=== PATIENT | female | born 1945 | race Caucasian/White ===

== ENCOUNTER 2017-07-21 12:28 | Inpatient (IN) | payer OTHER, MEDICAID ==
[~2017-07-21] VITALS: Ht 157.5 cm; Wt 57.5 kg
[~2017-07-21 12:28] MED LIST: ACET500T71 PO; ACET650S12 PR; ALEN70TA5 PO; ALPR-475 PO; AMIO200T42 PO; AMLO10TA2 PO; ASPI-496 PO; ASPI-515 PO; ATOR40TA78 PO; BISA10SU54 PR; BUDE10.2 INH; CALC-141 PO; CHOL100012 PO; CHOL10003 PO; CHOL20002 PO; CLOP75TA PO; DABI150C PO; DENO60DI SQ; DOXY100C2 PO; DOXY100T PO; EZET10TA18 PO; FLUT1AER INH; FLUT1BLS INH; FLUT1DIS3 INH; HYDR-3237 PO; LEVO500T8 PO; LEVO50TA5 PO; LISI-167 PO; LISI40TA PO; LISI5TAB7 PO; LUBI24CA7 PO; METO-264 PO; METO-93 PO; METO25TA35 PO; METO25TA91 PO; METO50TA82 PO; METR500T8 PO; MIRT45TA4 PO; MUPI15CR9 TP; OMEP-110 PO; ROSU20TA PO; ROSU40TA PO; SPIR25TA3 PO; TIOT18CA INH; ZOLP5TAB6 PO
[2017-07-21] MEDS ORDERED: SODIUM CHLORIDE 0.9% 1,000 ML IV ONE (12:45)
[2017-07-21] MEDS ORDERED: ONDANSETRON 2MG/ML, 2ML ONE (12:56)
[2017-07-21] MEDS ORDERED: morphine SULFATE 10 MG/ML, 1ML ONE (12:56)
[2017-07-21] MEDS ORDERED: PLEASE ENTER HEIGHT AND WEIGHT MC SCH (13:00)
[2017-07-21] MEDS ORDERED: ONDANSETRON 2MG/ML, 2ML IVPush ONE (13:00)
[2017-07-21] MEDS ORDERED: SODIUM CHLORIDE 0.9% 1,000ML IVBOLUS ONE ×2 (13:00→23:00)
[2017-07-21] MEDS ORDERED: MORPHINE SULFATE 4 MG/ML, 1ML IVPush PRN (13:00)
[2017-07-21 13:01] LABS: HEMATOCRIT 37.3 % (34.6-47.8); HEMOGLOBIN 12.2 g/dL (11.7-16.4); WHITE BLOOD COUNT 19.6 x10^3/uL (3.4-10)
[2017-07-21 13:13] LABS: ASPARTATE AMINO TRANSFERASE 17 U/L (15-37); BLOOD UREA NITROGEN 34 mg/dL (7-18)
[2017-07-21] MEDS ORDERED: OMNIPAQUE 350 MG/ML, 100ML BOTTLE ONE (13:59)
[2017-07-21] MEDS ORDERED: CIPROFLOXACIN/PMX 400MG/200ML 200 ML ONE (14:58)
[2017-07-21] MEDS ORDERED: METRONIDAZOLE PMX 500MG/100ML 100 ML IVPB ONE (15:00)
[2017-07-21] MEDS ORDERED: CIPROFLOXACIN/PMX 400MG/200ML 100 ML IVPB ONE (15:00)
[2017-07-21 15:50] VITALS: BP 146/74
[2017-07-21] MEDS ORDERED: morphine SULFATE 10 MG/ML, 1ML IVPush PRN (17:00)
[2017-07-21] MEDS: METRONIDAZOLE PMX 500MG/100ML 100 ML IV SCH (19:35)
[2017-07-21] MEDS: SODIUM CHLORIDE 0.9% 1,000 ML IV SCH (19:35)
[2017-07-21] MEDS: IPRATROPIUM 0.5 MG/2.5 ML INHA NPPB SCH (20:14)
[2017-07-21] MEDS: DABIGATRAN 150 MG CAPSULE PO SCH (21:40)
[2017-07-21] MEDS: MIRTAZAPINE 15 MG TABLET PO SCH (21:40)
[2017-07-21] MEDS: LUBIPROSTONE 24 MCG CAPSULE PO SCH (21:40)
[2017-07-21] MEDS: ATORVASTATIN 40 MG TABLET PO SCH (21:40)
[2017-07-21] MEDS: CHOLECALCIFEROL 1,000 UNIT TABLET PO SCH (21:40)
[2017-07-21] MEDS: OMEPRAZOLE 20 MG CAPSULE.DR PO SCH (21:40)
[2017-07-21] MEDS: EZETIMIBE 10 MG TABLET PO SCH (21:40)
[2017-07-21 22:35] VITALS: BP_SYST 83; BP_SYST 86; BP_DIAS 54; BP_DIAS 57
[2017-07-22 00:29] VITALS: BP 118/65
[2017-07-22 01:31] VITALS: BP 116/72
[2017-07-22] MEDS: CIPROFLOXACIN/PMX 400MG/200ML 200 ML IV SCH ×2 (02:48→15:22)
[2017-07-22] MEDS: SODIUM CHLORIDE 0.9% 1,000 ML IV SCH ×2 (05:05→15:21)
[2017-07-22] MEDS: METRONIDAZOLE PMX 500MG/100ML 100 ML IV SCH ×3 (05:05→19:40)
[2017-07-22 05:09] VITALS: BP 105/92
[2017-07-22] MEDS: METOPROLOL SUCCINATE 100 MG TAB.ER.24H PO SCH (05:09)
[2017-07-22 05:28] LABS: WHITE BLOOD COUNT 10.3 x10^3/uL (3.4-10)
[2017-07-22 05:37] LABS: BLOOD UREA NITROGEN 15 mg/dL (7-18)
[2017-07-22 05:41] LABS: ASPARTATE AMINO TRANSFERASE 10 U/L (15-37)
[2017-07-22 07:45] VITALS: BP 129/78
[2017-07-22] MEDS: AMLODIPINE 5 MG TABLET PO SCH (07:54)
[2017-07-22] MEDS: DABIGATRAN 150 MG CAPSULE PO SCH ×2 (07:54→21:15)
[2017-07-22] MEDS: LUBIPROSTONE 24 MCG CAPSULE PO SCH ×2 (07:54→21:00)
[2017-07-22] MEDS: CHOLECALCIFEROL 1,000 UNIT TABLET PO SCH ×2 (07:54→21:15)
[2017-07-22] MEDS: AMIODARONE 200 MG TABLET PO SCH (07:54)
[2017-07-22] MEDS: LISINOPRIL 10 MG TABLET PO SCH (07:55)
[2017-07-22] MEDS: ASPIRIN 81 MG TABLET EC PO SCH (07:55)
[2017-07-22] MEDS ORDERED: POTASSIUM CHLORIDE 20 MEQ TAB.ER.PRT PO ONE (08:00)
[2017-07-22] MEDS: IPRATROPIUM 0.5 MG/2.5 ML INHA NPPB SCH ×2 (08:32→20:32)
[2017-07-22 13:54] VITALS: BP 117/72
[2017-07-22] MEDS: POTASSIUM CHLORIDE 20 MEQ TAB.ER.PRT PO SCH (17:36)
[2017-07-22 19:58] VITALS: BP 145/77
[2017-07-22] MEDS: OMEPRAZOLE 20 MG CAPSULE.DR PO SCH (21:15)
[2017-07-22] MEDS: MIRTAZAPINE 15 MG TABLET PO SCH (21:15)
[2017-07-22] MEDS: ATORVASTATIN 40 MG TABLET PO SCH (21:15)
[2017-07-22] MEDS: EZETIMIBE 10 MG TABLET PO SCH (21:16)
[2017-07-23] MEDS: SODIUM CHLORIDE 0.9% 1,000 ML IV SCH ×3 (01:00→17:43)
[2017-07-23 01:06] VITALS: BP 144/80
[2017-07-23] MEDS: CIPROFLOXACIN/PMX 400MG/200ML 200 ML IV SCH ×2 (02:51→14:28)
[2017-07-23] MEDS: METRONIDAZOLE PMX 500MG/100ML 100 ML IV SCH ×3 (04:06→20:32)
[2017-07-23 05:07] LABS: BLOOD UREA NITROGEN 4 mg/dL (7-18)
[2017-07-23 05:08] LABS: HEMATOCRIT 28.7 % (34.6-47.8); HEMOGLOBIN 9.6 g/dL (11.7-16.4); WHITE BLOOD COUNT 7.2 x10^3/uL (3.4-10)
[2017-07-23] MEDS: METOPROLOL SUCCINATE 100 MG TAB.ER.24H PO SCH (05:25)
[2017-07-23] MEDS: LEVOTHYROXINE 50 MCG TABLET PO SCH ×2 (05:25→07:05)
[2017-07-23 07:03] VITALS: BP 136/82
[2017-07-23] MEDS: LUBIPROSTONE 24 MCG CAPSULE PO SCH ×2 (08:58→20:33)
[2017-07-23] MEDS: POTASSIUM CHLORIDE 20 MEQ TAB.ER.PRT PO SCH ×3 (08:58→17:43)
[2017-07-23] MEDS: AMIODARONE 200 MG TABLET PO SCH (08:58)
[2017-07-23] MEDS: AMLODIPINE 5 MG TABLET PO SCH (08:58)
[2017-07-23] MEDS: ASPIRIN 81 MG TABLET EC PO SCH (08:58)
[2017-07-23] MEDS: LISINOPRIL 10 MG TABLET PO SCH (08:58)
[2017-07-23] MEDS: CHOLECALCIFEROL 1,000 UNIT TABLET PO SCH ×2 (08:58→20:33)
[2017-07-23] MEDS ORDERED: POTASSIUM CHLORIDE 40 MEQ in SODIUM CHLORIDE 0.9% 500 ML IV ONE (09:00)
[2017-07-23] MEDS: HYDROcodone/APAP 5/325 TABLET PO PRN ×2 (09:11→17:43)
[2017-07-23] MEDS: DABIGATRAN 150 MG CAPSULE PO SCH ×2 (09:40→20:32)
[2017-07-23] MEDS: IPRATROPIUM 0.5 MG/2.5 ML INHA NPPB SCH ×2 (10:10→18:52)
[2017-07-23 13:09] VITALS: BP 122/76
[2017-07-23] MEDS ORDERED: BISACODYL 10 MG SUPP PR PRN (19:30)
[2017-07-23] MEDS ORDERED: LACTULOSE 20 GM/30 ML UDC PO PRN (19:30)
[2017-07-23 19:38] VITALS: BP 150/88
[2017-07-23] MEDS: OMEPRAZOLE 20 MG CAPSULE.DR PO SCH (20:33)
[2017-07-23] MEDS: ATORVASTATIN 40 MG TABLET PO SCH (20:33)
[2017-07-23] MEDS: EZETIMIBE 10 MG TABLET PO SCH (20:34)
[2017-07-23] MEDS: MIRTAZAPINE 15 MG TABLET PO SCH (20:34)
[2017-07-24] MEDS: HYDROcodone/APAP 5/325 TABLET PO PRN ×4 (01:57→21:08)
[2017-07-24] MEDS: SODIUM CHLORIDE 0.9% 1,000 ML IV SCH ×4 (01:59→21:02)
[2017-07-24] MEDS: CIPROFLOXACIN/PMX 400MG/200ML 200 ML IV SCH ×2 (01:59→15:46)
[2017-07-24 02:18] VITALS: BP 128/70
[2017-07-24] MEDS: METRONIDAZOLE PMX 500MG/100ML 100 ML IV SCH ×3 (04:00→20:57)
[2017-07-24 04:58] LABS: HEMATOCRIT 30.9 % (34.6-47.8); HEMOGLOBIN 10.3 g/dL (11.7-16.4); WHITE BLOOD COUNT 7.2 x10^3/uL (3.4-10)
[2017-07-24 05:10] LABS: BLOOD UREA NITROGEN 4 mg/dL (7-18)
[2017-07-24] MEDS: LEVOTHYROXINE 50 MCG TABLET PO SCH (06:05)
[2017-07-24] MEDS: METOPROLOL SUCCINATE 100 MG TAB.ER.24H PO SCH ×2 (06:05→06:31)
[2017-07-24 08:07] VITALS: BP 145/81
[2017-07-24] MEDS: DABIGATRAN 150 MG CAPSULE PO SCH ×2 (08:19→21:00)
[2017-07-24] MEDS: LUBIPROSTONE 24 MCG CAPSULE PO SCH ×2 (08:19→21:00)
[2017-07-24] MEDS: AMLODIPINE 5 MG TABLET PO SCH (08:20)
[2017-07-24] MEDS: AMIODARONE 200 MG TABLET PO SCH (08:20)
[2017-07-24] MEDS: POTASSIUM CHLORIDE 20 MEQ TAB.ER.PRT PO SCH ×2 (08:20→13:07)
[2017-07-24] MEDS: CHOLECALCIFEROL 1,000 UNIT TABLET PO SCH ×2 (08:20→21:01)
[2017-07-24] MEDS: ASPIRIN 81 MG TABLET EC PO SCH (08:20)
[2017-07-24] MEDS: LISINOPRIL 10 MG TABLET PO SCH (08:20)
[2017-07-24] MEDS ORDERED: DOCUSATE 100 MG CAPSULE PO SCH (09:00)
[2017-07-24] MEDS ORDERED: MAGNESIUM SULFATE PMX 2GM/50ML 50 ML IV ONE (09:30)
[2017-07-24] MEDS: IPRATROPIUM 0.5 MG/2.5 ML INHA NPPB SCH ×2 (09:45→19:39)
[2017-07-24] MEDS: ONDANSETRON 2MG/ML, 2ML IVPush PRN ×2 (11:13→21:07)
[2017-07-24] MEDS ORDERED: OMNIPAQUE 350 MG/ML, 75ML BOTTLE ONE (11:19)
[2017-07-24] MEDS: MAGNESIUM CHLORIDE 64 MG TABLET.DR PO SCH (13:07)
[2017-07-24 13:18] VITALS: BP 90/61
[2017-07-24] MEDS: FLUTICASONE/VILANTEROL 200-25MCG/INH INH SCH (17:00)
[2017-07-24] MEDS ORDERED: POLYETHYLENE GLYCOL 17 GM PACKET PO PRN (17:00)
[2017-07-24] MEDS ORDERED: MAGNESIUM CITRATE 300ML ORAL SOL PO ONE (17:00)
[2017-07-24] MEDS: SENNA/DOCUSATE TABLET PO SCH (17:38)
[2017-07-24 20:15] VITALS: BP 123/69
[2017-07-24] MEDS: OMEPRAZOLE 20 MG CAPSULE.DR PO SCH (21:00)
[2017-07-24] MEDS: ATORVASTATIN 40 MG TABLET PO SCH (21:00)
[2017-07-24] MEDS: EZETIMIBE 10 MG TABLET PO SCH (21:00)
[2017-07-24] MEDS: MIRTAZAPINE 15 MG TABLET PO SCH (21:01)
[2017-07-25] MEDS: HYDROcodone/APAP 5/325 TABLET PO PRN ×4 (03:22→17:14)
[2017-07-25] MEDS: CIPROFLOXACIN/PMX 400MG/200ML 200 ML IV SCH ×2 (03:22→15:52)
[2017-07-25 04:30] VITALS: BP 115/60
[2017-07-25] MEDS: METRONIDAZOLE PMX 500MG/100ML 100 ML IV SCH ×2 (05:00→12:55)
[2017-07-25] MEDS: LEVOTHYROXINE 50 MCG TABLET PO SCH (05:00)
[2017-07-25] MEDS: METOPROLOL SUCCINATE 100 MG TAB.ER.24H PO SCH (05:01)
[2017-07-25 06:56] VITALS: BP 104/66
[2017-07-25] MEDS: LISINOPRIL 10 MG TABLET PO SCH (08:01)
[2017-07-25] MEDS: FLUTICASONE/VILANTEROL 200-25MCG/INH INH SCH (08:01)
[2017-07-25] MEDS: LUBIPROSTONE 24 MCG CAPSULE PO SCH ×2 (08:01→20:30)
[2017-07-25] MEDS: DABIGATRAN 150 MG CAPSULE PO SCH ×2 (08:01→20:30)
[2017-07-25] MEDS: AMIODARONE 200 MG TABLET PO SCH (08:01)
[2017-07-25] MEDS: CHOLECALCIFEROL 1,000 UNIT TABLET PO SCH ×2 (08:01→20:30)
[2017-07-25] MEDS: AMLODIPINE 5 MG TABLET PO SCH (08:02)
[2017-07-25] MEDS: ASPIRIN 81 MG TABLET EC PO SCH (08:02)
[2017-07-25] MEDS: SENNA/DOCUSATE TABLET PO SCH (08:02)
[2017-07-25] MEDS: SODIUM CHLORIDE 0.9% 1,000 ML IV SCH ×2 (08:02→15:53)
[2017-07-25] MEDS: MAGNESIUM CHLORIDE 64 MG TABLET.DR PO SCH (08:02)
[2017-07-25] MEDS: IPRATROPIUM 0.5 MG/2.5 ML INHA NPPB SCH ×2 (10:00→21:00)
[2017-07-25 13:04] VITALS: BP 150/83
[2017-07-25 14:09] VITALS: BP 109/60
[2017-07-25] MEDS ORDERED: MAGNESIUM CITRATE 300ML ORAL SOL PO ONE (17:00)
[2017-07-25] MEDS: ONDANSETRON 2MG/ML, 2ML IVPush PRN (17:14)
[2017-07-25] MEDS ORDERED: ONDANSETRON ODT 4 MG PO PRN (18:30)
[2017-07-25 19:05] VITALS: BP 149/81
[2017-07-25] MEDS: metroNIDAZOLE 500 MG TABLET PO SCH (20:29)
[2017-07-25] MEDS: ATORVASTATIN 40 MG TABLET PO SCH (20:30)
[2017-07-25] MEDS: MIRTAZAPINE 15 MG TABLET PO SCH (20:30)
[2017-07-25] MEDS: EZETIMIBE 10 MG TABLET PO SCH (20:30)
[2017-07-25] MEDS: OMEPRAZOLE 20 MG CAPSULE.DR PO SCH (20:30)
[2017-07-26 03:28] VITALS: BP 147/79
[2017-07-26] MEDS: HYDROcodone/APAP 5/325 TABLET PO PRN ×3 (03:40→12:36)
[2017-07-26] MEDS: CIPROFLOXACIN 500 MG TABLET PO SCH ×2 (03:40→09:19)
[2017-07-26] MEDS: metroNIDAZOLE 500 MG TABLET PO SCH ×2 (05:24→12:36)
[2017-07-26] MEDS: METOPROLOL SUCCINATE 100 MG TAB.ER.24H PO SCH ×2 (05:24→06:23)
[2017-07-26] MEDS: LEVOTHYROXINE 50 MCG TABLET PO SCH (06:23)
[2017-07-26 08:13] VITALS: BP 137/80
[2017-07-26] MEDS: IPRATROPIUM 0.5 MG/2.5 ML INHA NPPB SCH (08:35)
[2017-07-26] MEDS: FLUTICASONE/VILANTEROL 200-25MCG/INH INH SCH (09:17)
[2017-07-26] MEDS: LUBIPROSTONE 24 MCG CAPSULE PO SCH (09:18)
[2017-07-26] MEDS: CHOLECALCIFEROL 1,000 UNIT TABLET PO SCH (09:19)
[2017-07-26] MEDS: DABIGATRAN 150 MG CAPSULE PO SCH (09:19)
[2017-07-26] MEDS: ASPIRIN 81 MG TABLET EC PO SCH (09:20)
[2017-07-26] MEDS: SENNA/DOCUSATE TABLET PO SCH (09:20)
[2017-07-26] MEDS: AMLODIPINE 5 MG TABLET PO SCH (09:20)
[2017-07-26] MEDS: MAGNESIUM CHLORIDE 64 MG TABLET.DR PO SCH (09:21)
[2017-07-26] MEDS: LISINOPRIL 10 MG TABLET PO SCH (09:21)
[2017-07-26] MEDS: AMIODARONE 200 MG TABLET PO SCH (09:22)
[2017-07-26 13:54] VITALS: BP 121/79
[2017-07-26] MEDS ORDERED: SENN1TAB7 PO (17:30)
[2017-07-26] MEDS ORDERED: FLUT1BLS INH (17:30)
[2017-07-26] MEDS ORDERED: METR500T PO (17:30)
[2017-07-26] MEDS ORDERED: CIPR500T87 PO (17:30)
[2017-07-26] MEDS ORDERED: FLU VACC QS2017-18 (36MOS+) UP/PF 0.5 ML IM-VACC ONE (18:00)
[2017-07-26] MEDS ORDERED: PNEUMOCOCCAL 23 VACCINE IM-VACC ONE (18:00)
== END 2017-07-26 19:00 | disposition home or self-care (01) | DRG 394 ==
LOC: ED 13:00 → EDIP 15:18 → 3NW 15:54
PROVIDERS: ADMIT Internal Medicine; ATTEND Internal Medicine
DX: K55.9 Vascular disorder of intestine, unspecified (principal); E44.0 Moderate protein-calorie malnutrition; N17.9 Acute kidney failure, unspecified; I48.2 Chronic atrial fibrillation; Z99.81 Dependence on supplemental oxygen; E83.51 Hypocalcemia; M48.54XA Collapsed vertebra, not elsewhere classified, thoracic region, initial encounter for fracture; K57.32 Diverticulitis of large intestine without perforation or abscess without bleeding; A09 Infectious gastroenteritis and colitis, unspecified; E03.9 Hypothyroidism, unspecified; J44.9 Chronic obstructive pulmonary disease, unspecified; E78.5 Hyperlipidemia, unspecified; E87.6 Hypokalemia; I10 Essential (primary) hypertension; I25.10 Atherosclerotic heart disease of native coronary artery without angina pectoris; K76.89 Other specified diseases of liver; K59.00 Constipation, unspecified; Z66 Do not resuscitate; R07.81 Pleurodynia; I25.2 Old myocardial infarction; I73.9 Peripheral vascular disease, unspecified; E86.0 Dehydration; Z68.23 Body mass index [BMI] 23.0-23.9, adult; Z95.5 Presence of coronary angioplasty implant and graft; Z87.891 Personal history of nicotine dependence; Z79.01 Long term (current) use of anticoagulants; Z95.0 Presence of cardiac pacemaker; Z86.73 Personal history of transient ischemic attack (TIA), and cerebral infarction without residual deficits; Z90.710 Acquired absence of both cervix and uterus
CPT/HCPCS: 36415; 71010; 71260; 74020; 74177; 80048; 80053; 81003; 82040; 82306; 82607; 83605; 83690; 83735; 84145; 85018; 85025; 87040; 89055; 90686; 90732; 93005; 94640; 96361; 96365; 96375; J0744; J2405; J3480; J7644; Q9967; J3475; J7030; J7040

== ENCOUNTER → 2017-09-03 | Outpatient (CLI) | payer OTHER, MEDICAID ==
[~2017-09-03] MED LIST changes: +CIPR500T87 PO; +METR500T PO; +SENN1TAB7 PO
== END | disposition home or self-care (01) ==
LOC: RAD 11:53
PROVIDERS: ATTEND Neurological Surgery
DX: M54.6 Pain in thoracic spine (principal)
CPT/HCPCS: 72072

== ENCOUNTER 2017-09-14 10:02 | Emergency (ER) | payer OTHER, MEDICAID ==
[2017-09-14 11:01] LABS: MICROSCOPIC INDICATED
[2017-09-14 11:37] VITALS: BP 105/57
== END 2017-09-14 11:54 | disposition home or self-care (01) ==
LOC: ED 11:10
DX: N30.01 Acute cystitis with hematuria (principal); Z87.891 Personal history of nicotine dependence
CPT/HCPCS: 81001; 99283

== ENCOUNTER 2017-12-31 13:07 | Inpatient (IN) | payer OTHER, MEDICAID ==
[~2017-12-31] VITALS: Ht 157.5 cm; Wt 58.5 kg
[~2017-12-31 13:07] MED LIST changes: +ALBU18HF INH; +DOXY100C PO; +METO-99 PO
[2017-12-31] MEDS ORDERED: ALBUTEROL/IPRATROPIUM 2.5MG/0.5MG, 3 ML NPPB ONE (13:30)
[2017-12-31] MEDS ORDERED: methylPREDNISolone SOD SUCC 125 MG/2 ML ONE (13:30)
[2017-12-31] MEDS ORDERED: methylPREDNISolone SOD SUCC 125 MG/2 ML IVP ONE (13:30)
[2017-12-31] MEDS ORDERED: SODIUM CHLORIDE FLUSH 10ML SYR IVF ONE (13:30)
[2017-12-31] MEDS ORDERED: ALBUTEROL/IPRATROPIUM 2.5MG/0.5MG, 3 ML ONE (13:39)
[2017-12-31 14:08] LABS: MEAN CORPUSCULAR HEMOGLOBIN 23.9 pg (27.0-34.8); MEAN CORPUSCULAR HGB CONC 30.9 g/dL (32.4-35.8); MEAN CORPUSCULAR VOLUME 77.4 fL (80-100); MEAN PLATELET VOLUME 9.2 fL (7.4-10.4); PLATELET COUNT 351 x10^3/uL (130-400); RED BLOOD COUNT 3.46 x10^6/uL (3.82-5.3)
[2017-12-31] MEDS ORDERED: LUBI24CA7 PO (14:10)
[2017-12-31] MEDS ORDERED: ALPR0.5T6 PO (14:10)
[2017-12-31 14:14] LABS: INTERNATIONAL NORMALIZED RATIO 1.33 (0.93-1.1); PROTHROMBIN TIME 13.8 Seconds (9.6-11.5)
[2017-12-31 14:18] LABS: ALANINE AMINOTRANSFERASE 18 U/L (12-78); ALBUMIN 2.8 g/dL (3.4-5.0); ANION GAP 10 mmol/L (5-15); CALCIUM 7.9 mg/dL (8.5-10.1); CHLORIDE 111 mmol/L (98-107); CREATININE 0.65 mg/dL (0.55-1.02)
[2017-12-31 14:22] LABS: ALKALINE PHOSPHATASE 106 U/L (45-117); BILIRUBIN,TOTAL 0.4 mg/dL (0.2-1.0); TOTAL PROTEIN 6.4 g/dL (6.4-8.2); TROPONIN I < 0.015 ng/mL (0.000-0.045)
[2017-12-31] MEDS ORDERED: SODIUM CHLORIDE 0.9% 1,000ML IVBOLUS ONE (14:30)
[2017-12-31] MEDS ORDERED: AZITHROMYCIN 500 MG in SODIUM CHLORIDE 0.9% 250 ML IVPB ONE (14:30)
[2017-12-31] MEDS ORDERED: CEFTRIAXONE PMX 1GM/50ML 50 ML IVPB ONE (14:30)
[2017-12-31 15:01] LABS: BASOPHILS # (AUTO) 0.03 x10^3/uL (0-0.1); BASOPHILS % (AUTO) 0 % (0-1); EOSINOPHILS # (AUTO) 0.04 x10^3/uL (0-0.4); EOSINOPHILS % (AUTO) 0 % (1-7); LYMPHOCYTES # (AUTO) 0.86 x10^3/uL (1-3.4); LYMPHOCYTES % (AUTO) 4 % (22-44); MD SCAN; MONOCYTES # (AUTO) 0.86 x10^3/uL (0.2-0.8); MONOCYTES % (AUTO) 4 % (2-9); NEUTROPHILS # (AUTO) 18.85 x10^3/uL (1.8-6.8); NEUTROPHILS % (AUTO) 91 % (42-75)
[2017-12-31] MEDS ORDERED: CEFTRIAXONE PMX 1GM/50ML 50 ML ONE (15:02)
[2017-12-31 15:34] LABS: CULTURE INDICATED? YES; MICROSCOPIC INDICATED
[2017-12-31] MEDS ORDERED: SODIUM CHLORIDE FLUSH 10ML SYR IVF PRN (16:00)
[2017-12-31] MEDS ORDERED: CEFTRIAXONE PMX 2GM/50ML 50 ML IV SCH (16:30)
[2017-12-31] MEDS ORDERED: GUAIFENESIN/DM 200-20MG, 10ML UDC PO PRN (16:30)
[2017-12-31] MEDS ORDERED: POLYETHYLENE GLYCOL 17 GM PACKET PO PRN (16:30)
[2017-12-31] MEDS ORDERED: AZITHROMYCIN 500 MG in SODIUM CHLORIDE 0.9% 250 ML IV SCH (16:30)
[2017-12-31] MEDS ORDERED: methylPREDNISolone SOD SUCC 125 MG/2 ML IVPush SCH (16:30)
[2017-12-31] MEDS ORDERED: ACETAMINOPHEN 325 MG TABLET PO PRN (16:30)
[2017-12-31 16:54] LABS: TROPONIN I < 0.015 ng/mL (0.000-0.045)
[2017-12-31 17:37] VITALS: BP 124/72
[2017-12-31] MEDS: SODIUM CHLORIDE 0.9% 1,000 ML IV SCH (17:53)
[2017-12-31] MEDS ORDERED: hydrALAzine 20 MG/ML, 1ML IVPush PRN (18:00)
[2017-12-31] MEDS ORDERED: POTASSIUM CHLORIDE 20 MEQ TAB.ER.PRT PO ONE (19:00)
[2017-12-31] MEDS ORDERED: MAGNESIUM SULFATE PMX 2GM/50ML 50 ML IV ONE (19:00)
[2017-12-31] MEDS: ALBUTEROL/IPRATROPIUM 2.5MG/0.5MG, 3 ML NPPB SCH (19:45)
[2017-12-31] MEDS: DABIGATRAN 150 MG CAPSULE PO SCH (20:28)
[2017-12-31] MEDS: ATORVASTATIN 40 MG TABLET PO SCH (20:28)
[2017-12-31] MEDS: OMEPRAZOLE 20 MG CAPSULE.DR PO SCH (20:28)
[2017-12-31] MEDS: MIRTAZAPINE 15 MG TABLET PO SCH (20:29)
[2017-12-31] MEDS: CHOLECALCIFEROL 1,000 UNIT TABLET PO SCH (20:29)
[2017-12-31 20:31] VITALS: BP 90/53
[2017-12-31] MEDS: EZETIMIBE 10 MG TABLET PO SCH (20:34)
[2017-12-31] MEDS ORDERED: TEMPLATE NON-FORMULARY MED. (Budesonide/Formoterol Fumarate (Symbicort 160-4.5 Mcg Inhaler INH SCH (21:00)
[2017-12-31 22:54] LABS: TROPONIN I < 0.015 ng/mL (0.000-0.045)
[2017-12-31] MEDS: methylPREDNISolone SOD SUCC 125 MG/2 ML IVPush SCH (23:39)
[2018-01-01 01:30] VITALS: BP 90/56
[2018-01-01] MEDS: CEFTRIAXONE PMX 2GM/50ML 50 ML IV SCH (03:26)
[2018-01-01 05:34] LABS: ANION GAP 6 mmol/L (5-15); CALCIUM 8.1 mg/dL (8.5-10.1); CHLORIDE 116 mmol/L (98-107)
[2018-01-01 05:36] LABS: MEAN CORPUSCULAR HEMOGLOBIN 24.4 pg (27.0-34.8); MEAN CORPUSCULAR VOLUME 78.9 fL (80-100); MEAN PLATELET VOLUME 9.1 fL (7.4-10.4); PLATELET COUNT 292 x10^3/uL (130-400); RED BLOOD COUNT 2.93 x10^6/uL (3.82-5.3); RED CELL DISTRIBUTION WIDTH 18.9 % (9.6-15.2)
[2018-01-01 05:46] LABS: CHOL/HDL RATIO 2.1; CHOLESTEROL, TOTAL 102 mg/dL (140-239); HDL CHOL % 47 % (28-40); HDL CHOLESTEROL (DIRECT) 48 mg/dL (40-60); LDL CHOLESTEROL,CALCULATED 38 mg/dL (54-169); LDL/HDL RATIO 0.8 (0.5-3.0); TRIGLYCERIDES 82 mg/dL (50-200); VLDL CHOLESTEROL 16 mg/dL (0-25)
[2018-01-01 06:17] LABS: BASOPHILS # (AUTO) 0.02 x10^3/uL (0-0.1); BASOPHILS % (AUTO) 0 % (0-1); EOSINOPHILS % (AUTO) 0 % (1-7); LYMPHOCYTES # (AUTO) 0.52 x10^3/uL (1-3.4); LYMPHOCYTES % (AUTO) 5 % (22-44); MD SCAN; MONOCYTES # (AUTO) 0.03 x10^3/uL (0.2-0.8); MONOCYTES % (AUTO) 0 % (2-9); NEUTROPHILS # (AUTO) 10.28 x10^3/uL (1.8-6.8); NEUTROPHILS % (AUTO) 95 % (42-75)
[2018-01-01] MEDS: LEVOTHYROXINE 50 MCG TABLET PO SCH (06:23)
[2018-01-01] MEDS: methylPREDNISolone SOD SUCC 125 MG/2 ML IVPush SCH ×3 (06:23→22:37)
[2018-01-01] MEDS: SODIUM CHLORIDE 0.9% 1,000 ML IV SCH (06:23)
[2018-01-01] MEDS: ALBUTEROL/IPRATROPIUM 2.5MG/0.5MG, 3 ML NPPB SCH ×4 (07:00→20:23)
[2018-01-01 07:40] VITALS: BP 108/64
[2018-01-01] MEDS ORDERED: TEMPLATE NON-FORMULARY MED. (Albuterol Sulfate (Ventolin Hfa) 2 PUFF(S)) INH SCH (09:00)
[2018-01-01] MEDS ORDERED: TEMPLATE NON-FORMULARY MED. (Tiotropium Bromide** (Spiriva**) 18 MCG) INH SCH (09:00)
[2018-01-01 09:30] VITALS: BP 105/55
[2018-01-01] MEDS: ASPIRIN 81 MG TABLET EC PO SCH (09:30)
[2018-01-01] MEDS: DABIGATRAN 150 MG CAPSULE PO SCH ×2 (09:30→20:37)
[2018-01-01] MEDS: METOPROLOL TARTRATE 100 MG TABLET PO SCH (09:30)
[2018-01-01] MEDS: AMIODARONE 200 MG TABLET PO SCH (09:31)
[2018-01-01] MEDS: AMLODIPINE 5 MG TABLET PO SCH (09:31)
[2018-01-01] MEDS: LISINOPRIL 10 MG TABLET PO SCH (09:31)
[2018-01-01] MEDS: CHOLECALCIFEROL 1,000 UNIT TABLET PO SCH ×2 (09:31→20:38)
[2018-01-01] MEDS: FLUTICASONE/VILANTEROL 200-25MCG/INH INH SCH (10:22)
[2018-01-01 12:27] VITALS: BP 110/66
[2018-01-01 15:23] LABS: FOLATE LEVEL 7.3 ng/mL (3.1-17.5)
[2018-01-01] MEDS: SODIUM CHLORIDE 0.45% 1,000 ML IV SCH (15:39)
[2018-01-01] MEDS: AZITHROMYCIN 500 MG in SODIUM CHLORIDE 0.9% 250 ML IV SCH (17:11)
[2018-01-01 19:02] VITALS: BP 103/64
[2018-01-01 19:25] LABS: ABSOLUTE RETICS # 0.065 x10^6/uL (0.5-2.5); RETICULOCYTE COUNT % 2.19 % (0.5-1.5)
[2018-01-01 19:30] LABS: MEAN CORPUSCULAR HEMOGLOBIN 24.5 pg (27.0-34.8); MEAN CORPUSCULAR HGB CONC 31.1 g/dL (32.4-35.8); MEAN CORPUSCULAR VOLUME 78.9 fL (80-100); MEAN PLATELET VOLUME 9.1 fL (7.4-10.4); PLATELET COUNT 308 x10^3/uL (130-400); RED BLOOD COUNT 2.99 x10^6/uL (3.82-5.3)
[2018-01-01 19:47] LABS: BASOPHILS % (AUTO) 0 % (0-1); EOSINOPHILS % (AUTO) 0 % (1-7); LYMPHOCYTES # (AUTO) 0.35 x10^3/uL (1-3.4); LYMPHOCYTES % (AUTO) 3 % (22-44); MONOCYTES # (AUTO) 0.14 x10^3/uL (0.2-0.8); MONOCYTES % (AUTO) 1 % (2-9); NEUTROPHILS # (AUTO) 12.92 x10^3/uL (1.8-6.8); NEUTROPHILS % (AUTO) 96 % (42-75)
[2018-01-01 19:48] LABS: MD SCAN
[2018-01-01] MEDS: EZETIMIBE 10 MG TABLET PO SCH (20:37)
[2018-01-01] MEDS: ATORVASTATIN 40 MG TABLET PO SCH (20:38)
[2018-01-01] MEDS: MIRTAZAPINE 15 MG TABLET PO SCH (20:38)
[2018-01-01] MEDS: OMEPRAZOLE 20 MG CAPSULE.DR PO SCH (20:38)
[2018-01-02] VITALS (7 sets, daily range): BP systolic 109–128; BP diastolic 64–73
[2018-01-02] MEDS: CEFTRIAXONE PMX 2GM/50ML 50 ML IV SCH (03:27)
[2018-01-02] MEDS: methylPREDNISolone SOD SUCC 125 MG/2 ML IVPush SCH ×3 (05:50→22:59)
[2018-01-02] MEDS: SODIUM CHLORIDE 0.45% 1,000 ML IV SCH (05:51)
[2018-01-02] MEDS: LEVOTHYROXINE 50 MCG TABLET PO SCH (05:51)
[2018-01-02 06:11] LABS: BASOPHILS % (AUTO) 0 % (0-1); EOSINOPHILS % (AUTO) 0 % (1-7); LYMPHOCYTES % (AUTO) 3 % (22-44); MD NO; MEAN CORPUSCULAR HEMOGLOBIN 24.2 pg (27.0-34.8); MEAN CORPUSCULAR HGB CONC 30.8 g/dL (32.4-35.8); MEAN CORPUSCULAR VOLUME 78.5 fL (80-100); MEAN PLATELET VOLUME 9.2 fL (7.4-10.4); MONOCYTES # (AUTO) 0.19 x10^3/uL (0.2-0.8); MONOCYTES % (AUTO) 2 % (2-9); NEUTROPHILS # (AUTO) 11.42 x10^3/uL (1.8-6.8); NEUTROPHILS % (AUTO) 95 % (42-75); PLATELET COUNT 307 x10^3/uL (130-400); RED BLOOD COUNT 2.83 x10^6/uL (3.82-5.3); RED CELL DISTRIBUTION WIDTH 19.4 % (9.6-15.2)
[2018-01-02 06:22] LABS: CHLORIDE 116 mmol/L (98-107)
[2018-01-02 06:36] LABS: ALANINE AMINOTRANSFERASE 36 U/L (12-78); ALBUMIN 2.3 g/dL (3.4-5.0); ALKALINE PHOSPHATASE 76 U/L (45-117); ANION GAP 9 mmol/L (5-15); BILIRUBIN,TOTAL 0.2 mg/dL (0.2-1.0); CALCIUM 8.3 mg/dL (8.5-10.1); CREATININE 0.46 mg/dL (0.55-1.02); TOTAL PROTEIN 5.5 g/dL (6.4-8.2)
[2018-01-02] MEDS ORDERED: CYANOCOBALAMIN 1,000 MCG/ML, 1ML IM ONE (07:00)
[2018-01-02] MEDS ORDERED: IRON DEXTRAN IV PER PHARMACY IV PRN (07:00)
[2018-01-02] MEDS: ALBUTEROL/IPRATROPIUM 2.5MG/0.5MG, 3 ML NPPB SCH ×5 (07:44→21:10)
[2018-01-02] MEDS: AMIODARONE 200 MG TABLET PO SCH (08:03)
[2018-01-02] MEDS: AMLODIPINE 5 MG TABLET PO SCH (08:03)
[2018-01-02] MEDS: LISINOPRIL 10 MG TABLET PO SCH (08:03)
[2018-01-02] MEDS: ASPIRIN 81 MG TABLET EC PO SCH (08:03)
[2018-01-02] MEDS: PANTOPRAZOLE 40 MG IV IVPush SCH ×2 (08:03→19:55)
[2018-01-02] MEDS: CHOLECALCIFEROL 1,000 UNIT TABLET PO SCH ×2 (08:04→21:14)
[2018-01-02] MEDS: METOPROLOL TARTRATE 100 MG TABLET PO SCH (08:04)
[2018-01-02] MEDS: FLUTICASONE/VILANTEROL 200-25MCG/INH INH SCH (09:00)
[2018-01-02] MEDS ORDERED: IRON DEXTRAN COMPLEX 25 MG in SODIUM CHLORIDE 0.9% 50 ML IV ONE (09:00)
[2018-01-02] MEDS ORDERED: IRON DEXTRAN COMPLEX 1,300 MG in SODIUM CHLORIDE 0.9% 250 ML IV ONE (10:00)
[2018-01-02] MEDS: IRON SUCROSE COMPLEX 100MG/5ML IV SCH (10:26)
[2018-01-02] MEDS: AZITHROMYCIN 500 MG in SODIUM CHLORIDE 0.9% 250 ML IV SCH (16:33)
[2018-01-02] MEDS ORDERED: SODIUM CHLORIDE 0.45% 1,000 ML IV SCH (19:30)
[2018-01-02] MEDS: OMEPRAZOLE 20 MG CAPSULE.DR PO SCH (21:14)
[2018-01-02] MEDS: MIRTAZAPINE 15 MG TABLET PO SCH (21:14)
[2018-01-02] MEDS: ATORVASTATIN 40 MG TABLET PO SCH (21:14)
[2018-01-02] MEDS: EZETIMIBE 10 MG TABLET PO SCH (21:14)
[2018-01-03 02:00] VITALS: BP 111/69
[2018-01-03] MEDS: CEFTRIAXONE PMX 2GM/50ML 50 ML IV SCH (03:37)
[2018-01-03] MEDS: LEVOTHYROXINE 50 MCG TABLET PO SCH (06:00)
[2018-01-03 06:13] LABS: MEAN CORPUSCULAR HEMOGLOBIN 25.2 pg (27.0-34.8); MEAN CORPUSCULAR HGB CONC 31.2 g/dL (32.4-35.8); MEAN CORPUSCULAR VOLUME 80.8 fL (80-100); PLATELET COUNT 319 x10^3/uL (130-400); RED BLOOD COUNT 3.45 x10^6/uL (3.82-5.3); RED CELL DISTRIBUTION WIDTH 19.5 % (9.6-15.2)
[2018-01-03 06:28] LABS: CHLORIDE 115 mmol/L (98-107)
[2018-01-03 06:36] LABS: ALANINE AMINOTRANSFERASE 84 U/L (12-78); ALBUMIN 2.3 g/dL (3.4-5.0); ALKALINE PHOSPHATASE 77 U/L (45-117); ANION GAP 8 mmol/L (5-15); BILIRUBIN,TOTAL 0.2 mg/dL (0.2-1.0); CALCIUM 8.1 mg/dL (8.5-10.1); CREATININE 0.73 mg/dL (0.55-1.02); TOTAL PROTEIN 5.6 g/dL (6.4-8.2)
[2018-01-03] MEDS: ALBUTEROL/IPRATROPIUM 2.5MG/0.5MG, 3 ML NPPB SCH ×3 (06:47→19:50)
[2018-01-03 06:51] LABS: BASOPHILS % (AUTO) 0 % (0-1); EOSINOPHILS % (AUTO) 0 % (1-7); LYMPHOCYTES # (AUTO) 0.34 x10^3/uL (1-3.4); LYMPHOCYTES % (AUTO) 3 % (22-44); MD SCAN; MONOCYTES # (AUTO) 0.22 x10^3/uL (0.2-0.8); MONOCYTES % (AUTO) 2 % (2-9); NEUTROPHILS # (AUTO) 9.78 x10^3/uL (1.8-6.8); NEUTROPHILS % (AUTO) 95 % (42-75)
[2018-01-03] MEDS: LISINOPRIL 10 MG TABLET PO SCH (08:55)
[2018-01-03] MEDS: methylPREDNISolone SOD SUCC 125 MG/2 ML IVPush SCH (08:55)
[2018-01-03] MEDS: PANTOPRAZOLE 40 MG IV IVPush SCH (08:55)
[2018-01-03] MEDS: CHOLECALCIFEROL 1,000 UNIT TABLET PO SCH ×2 (08:55→21:21)
[2018-01-03] MEDS: IRON SUCROSE COMPLEX 100MG/5ML IV SCH (08:55)
[2018-01-03] MEDS: AMLODIPINE 5 MG TABLET PO SCH (08:56)
[2018-01-03] MEDS: METOPROLOL TARTRATE 100 MG TABLET PO SCH (08:56)
[2018-01-03] MEDS: AMIODARONE 200 MG TABLET PO SCH (08:56)
[2018-01-03 09:00] VITALS: BP 120/79
[2018-01-03] MEDS: FLUTICASONE/VILANTEROL 200-25MCG/INH INH SCH (11:06)
[2018-01-03] MEDS: POTASSIUM CHLORIDE 20 MEQ TAB.ER.PRT PO SCH ×2 (13:38→18:45)
[2018-01-03] MEDS: DEXTROSE 5% 1,000 ML IV SCH (13:44)
[2018-01-03 17:12] VITALS: BP 129/70
[2018-01-03 20:00] VITALS: BP 101/54
[2018-01-03] MEDS: ATORVASTATIN 40 MG TABLET PO SCH (21:21)
[2018-01-03] MEDS: MIRTAZAPINE 15 MG TABLET PO SCH (21:21)
[2018-01-03] MEDS: EZETIMIBE 10 MG TABLET PO SCH (21:21)
[2018-01-03] MEDS: OMEPRAZOLE 20 MG CAPSULE.DR PO SCH (21:21)
[2018-01-04] MEDS: DEXTROSE 5% 1,000 ML IV SCH (00:49)
[2018-01-04 01:00] VITALS: BP 131/77
[2018-01-04] MEDS: LEVOTHYROXINE 50 MCG TABLET PO SCH (05:43)
[2018-01-04] MEDS: ALBUTEROL/IPRATROPIUM 2.5MG/0.5MG, 3 ML NPPB SCH ×2 (06:20→11:56)
[2018-01-04 06:21] LABS: ALBUMIN 2.5 g/dL (3.4-5.0); ANION GAP 7 mmol/L (5-15); CALCIUM 8.6 mg/dL (8.5-10.1); CHLORIDE 114 mmol/L (98-107)
[2018-01-04 06:24] LABS: CREATININE 0.51 mg/dL (0.55-1.02)
[2018-01-04 06:43] VITALS: BP 152/83
[2018-01-04] MEDS: LISINOPRIL 10 MG TABLET PO SCH (08:15)
[2018-01-04] MEDS: FLUTICASONE/VILANTEROL 200-25MCG/INH INH SCH (08:15)
[2018-01-04] MEDS: CHOLECALCIFEROL 1,000 UNIT TABLET PO SCH (08:15)
[2018-01-04] MEDS: AMLODIPINE 5 MG TABLET PO SCH (08:15)
[2018-01-04] MEDS: IRON SUCROSE COMPLEX 100MG/5ML IV SCH (08:15)
[2018-01-04] MEDS: OMEPRAZOLE 20 MG CAPSULE.DR PO SCH (08:16)
[2018-01-04] MEDS: METOPROLOL TARTRATE 100 MG TABLET PO SCH (08:16)
[2018-01-04] MEDS: AMIODARONE 200 MG TABLET PO SCH (08:16)
[2018-01-04] MEDS: POTASSIUM CHLORIDE 20 MEQ TAB.ER.PRT PO SCH (08:16)
[2018-01-04] MEDS ORDERED: FERR325T5 PO (10:21)
[2018-01-04 13:13] VITALS: BP 147/74
[2018-01-04] MEDS ORDERED: ALBUTEROL/IPRATROPIUM 2.5MG/0.5MG, 3 ML NPPB SCH (15:00)
== END 2018-01-04 17:20 | disposition home or self-care (01) | DRG 871 ==
LOC: ED 13:31 → EDIP 15:46 → 4EST 17:32
PROVIDERS: ADMIT Hospitalist; ATTEND Hospitalist
PROC: 0T9B70Z Drainage of Bladder with Drainage Device, Via Natural or Artificial Opening (ICD-10-PCS; principal; 2017-12-31)
PROC: 30233N1 Transfusion of Nonautologous Red Blood Cells into Peripheral Vein, Percutaneous Approach (ICD-10-PCS; 2018-01-02)
DX: A41.9 Sepsis, unspecified organism (principal); E43 Unspecified severe protein-calorie malnutrition; J96.21 Acute and chronic respiratory failure with hypoxia; E87.0 Hyperosmolality and hypernatremia; J15.9 Unspecified bacterial pneumonia; D63.8 Anemia in other chronic diseases classified elsewhere; I48.91 Unspecified atrial fibrillation; Z99.81 Dependence on supplemental oxygen; J44.0 Chronic obstructive pulmonary disease with (acute) lower respiratory infection; J44.1 Chronic obstructive pulmonary disease with (acute) exacerbation; E87.1 Hypo-osmolality and hyponatremia; D50.9 Iron deficiency anemia, unspecified; E03.9 Hypothyroidism, unspecified; E78.00 Pure hypercholesterolemia, unspecified; E83.42 Hypomagnesemia; E87.6 Hypokalemia; I10 Essential (primary) hypertension; I25.10 Atherosclerotic heart disease of native coronary artery without angina pectoris; I25.2 Old myocardial infarction; K21.9 Gastro-esophageal reflux disease without esophagitis; M81.0 Age-related osteoporosis without current pathological fracture; Z82.49 Family history of ischemic heart disease and other diseases of the circulatory system; Z86.73 Personal history of transient ischemic attack (TIA), and cerebral infarction without residual deficits; Z87.891 Personal history of nicotine dependence; Z90.710 Acquired absence of both cervix and uterus; Z95.0 Presence of cardiac pacemaker; Z95.5 Presence of coronary angioplasty implant and graft; Z98.51 Tubal ligation status; Z79.899 Other long term (current) drug therapy; Z79.82 Long term (current) use of aspirin; Z68.23 Body mass index [BMI] 23.0-23.9, adult
CPT/HCPCS: 36415; 71045; 80048; 80053; 80061; 81001; 82040; 82607; 82728; 82746; 83540; 83550; 83605; 83735; 83880; 84100; 84145; 84443; 84484; 85014; 85018; 85025; 85045; 85610; 85730; 86850; 86900; 86923; 87040; 87070; 87086; 87205; 93005; 93306; 94640; 96361; 96365; 96366; 96367; 96375; J0456; J0696; J1756; J7070; J7620; C9113; J2930; J3420; J3475; J7030; J7050; P9016

== ENCOUNTER 2018-10-21 18:16 | Inpatient (IN) | payer MEDICARE, MEDICAID ==
[~2018-10-21] VITALS: Ht 157.5 cm; Wt 52.9 kg
[~2018-10-21 18:16] MED LIST changes: -ALEN70TA5 PO; +ALEN70TA6 PO; +ALPR0.5T6 PO; -AMLO10TA2 PO; +AMLO10TA8 PO; +CEFD300C37 PO; -CHOL20002 PO; +CHOL200052 PO; +FERR325T5 PO; +IPRA3AMP30 NPPB; +LACT1TAB13 PO; +METR-90 PO; -METR500T8 PO; -MIRT45TA4 PO; +MIRT45TA61 PO; +Maalox/Hyoscyamine/Lidocaine PO; +ONDA4TAB13 PO; +PANT40TA3 PO; -SENN1TAB7 PO; +SENN1TAB8 PO; -SPIR25TA3 PO; +SPIR25TA5 PO; +SUCR1TAB33 PO
[2018-10-21] MEDS ORDERED: SODIUM CHLORIDE FLUSH 10ML SYR IVF ONE (18:30)
--- NOTE | 2018-10-21 18:30 | NUR ---
72 Y/O FEMALE BIB AMBULANCE WITH C/O HYPOXIA. PT FROM [facility]. 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 WORSENING SX TODAY. PT HAD OXYGEN SATURATION OF 70% ON 5 LPM AT [facility]. PT HAD CONT ALB TX AND SOLUMEDROL AT [facility]. UPON ARRIVAL PT WAS ON CONT NEB AND ONE DUO NEB. PT PLACED ON CONT PULSE OX,NIBP, HOTEL FRONT OFFICE MANAGER. RT BEDSIDE. PT PLACED ON OPTI FLOW. PT DENIES CP, N/V/D, TRAUMA. PT ALSO DENIES COUGH. "I JUST HAVE A LOT OF PHLEGM THAT COMES UP."
--- NOTE | 2018-10-21 18:41 | NUR ---
PT HAD PIV IN LEFT HAND THAT WAS PLACED PRIOR TO ARRIVAL AT [facility]
[2018-10-21 18:44] LABS: BASOPHILS # (AUTO) 0.01 x10^3/uL (0-0.1); BASOPHILS % (AUTO) 0 % (0-1); EOSINOPHILS # (AUTO) 0.01 x10^3/uL (0-0.4); EOSINOPHILS % (AUTO) 0 % (1-7); LYMPHOCYTES % (AUTO) 10 % (22-44); MD NO; MEAN CORPUSCULAR HEMOGLOBIN 30.8 pg (27.0-34.8); MEAN CORPUSCULAR HGB CONC 32.4 g/dL (32.4-35.8); MEAN CORPUSCULAR VOLUME 95.2 fL (80-100); MEAN PLATELET VOLUME 9.2 fL (7.4-10.4); MONOCYTES # (AUTO) 0.03 x10^3/uL (0.2-0.8); MONOCYTES % (AUTO) 1 % (2-9); NEUTROPHILS % (AUTO) 89 % (42-75); PLATELET COUNT 273 x10^3/uL (130-400); RED BLOOD COUNT 4.09 x10^6/uL (3.82-5.3); RED CELL DISTRIBUTION WIDTH 16.1 % (9.6-15.2)
[2018-10-21 18:50] LABS: ALBUMIN 2.9 g/dL (3.4-5.0); ANION GAP 8 mmol/L (5-15); CALCIUM 8.8 mg/dL (8.5-10.1); CHLORIDE 108 mmol/L (98-107); CREATININE 0.65 mg/dL (0.55-1.02)
[2018-10-21 18:54] LABS: TROPONIN I 0.015 ng/mL (0.000-0.045)
[2018-10-21] MEDS ORDERED: LACT1CAP35 PO (19:12)
[2018-10-21] MEDS ORDERED: [UNRECOGNIZED DRUG - OTHER] PO (19:12)
[2018-10-21] MEDS ORDERED: AMLO5TAB4 PO (19:12)
[2018-10-21] MEDS ORDERED: INCRUSE ELLIPTA INH (19:12)
--- NOTE | 2018-10-21 19:13 | NUR ---
BEDSIDE REPORT TO PALOMA DEL REAL. RT BEDSIDE PLACING BI PAP
[2018-10-21] MEDS ORDERED: CEFTRIAXONE PMX 1GM/50ML 50 ML IV ONE (19:30)
--- NOTE | 2018-10-21 19:46 | NUR ---
CTA WAS CPMPLETED PT WAS TOLERATED WELL DURING THE CTA VSS PT HAS PACER INTERMITTENTLY PACED HR WAS KEPT 60'S
[2018-10-21] MEDS ORDERED: OMNIPAQUE 350 MG/ML, 100ML BOTTLE ONE (19:52)
--- NOTE | 2018-10-21 19:54 | NUR ---
BLOOD CULTURES WERE ORDERED
[2018-10-21] MEDS ORDERED: VANCOMYCIN PER PHARMACY MC PRN (20:00)
[2018-10-21] MEDS ORDERED: PIPERACILLIN/TAZO/PMX 3.375GM 50 ML ONE (20:26)
[2018-10-21] MEDS ORDERED: PIPERACILLIN/TAZO/PMX 3.375GM 50 ML IV ONE (20:30)
[2018-10-21] MEDS ORDERED: VANCOMYCIN PMX 1GM/200ML 200 ML IV ONE (20:30)
--- NOTE | 2018-10-21 21:24 | NUR ---
ALL IV ABX WERE GIVEN BIPAP OYGEN 80% PER ABG INDU RT MANAGED PT IS SLEEPING NO OTHER C/O PT DENIED URINATION AT THIS TIME
[2018-10-21] MEDS ORDERED: ONDANSETRON ODT 4 MG PO PRN (21:30)
[2018-10-21] MEDS ORDERED: BISACODYL 10 MG SUPP PR PRN (21:30)
[2018-10-21] MEDS ORDERED: DOCUSATE 100 MG CAPSULE PO PRN (21:30)
[2018-10-21] MEDS ORDERED: PROMETHAZINE 25 MG/ML, 1ML IM PRN (21:30)
[2018-10-21] MEDS ORDERED: ONDANSETRON 2MG/ML, 2ML IVPush PRN (21:30)
[2018-10-21] MEDS ORDERED: morphine SULFATE 10 MG/ML, 1ML IVPush PRN (21:30)
[2018-10-21] MEDS ORDERED: POLYETHYLENE GLYCOL 17 GM PACKET PO PRN (21:30)
[2018-10-21] MEDS ORDERED: hydrALAzine 20 MG/ML, 1ML IVPush PRN (21:30)
[2018-10-21] MEDS ORDERED: ACETAMINOPHEN 325 MG TABLET PO PRN (21:30)
[2018-10-21] MEDS: methylPREDNISolone SOD SUCC 125 MG/2 ML IVPush SCH (21:42)
[2018-10-21] MEDS: SODIUM CHLORIDE 0.9% 1,000 ML IV SCH (21:43)
--- NOTE | 2018-10-21 21:47 | NUR ---
PT IS SLEEPING ON BIPAP NO OTHER C/O
[2018-10-21] MEDS ORDERED: POTASSIUM CHLORIDE 40 MEQ in SODIUM CHLORIDE 0.9% 500 ML IV ONE (22:00)
[2018-10-21 22:08] LABS: HEMOGLOBIN A1C 5.3 % (4.2-6.3)
[2018-10-21 22:09] LABS: FREE T4 (FREE THYROXINE) 1.81 ng/dL (0.76-1.46); THYROID STIMULATING HORMONE 1.37 mIU/L (0.358-3.740)
--- NOTE | 2018-10-21 22:52 | NUR ---
REPORT GIVEN TO PALOMA WATSON PT IS ON BIPAP STABLE
[2018-10-21] MEDS: ALBUTEROL/IPRATROPIUM 2.5MG/0.5MG, 3 ML NPPB SCH (23:00)
[2018-10-21] MEDS: ATORVASTATIN 40 MG TABLET PO SCH (23:24)
[2018-10-21] MEDS: LACTOBACILLUS CHEW TABLET PO SCH (23:24)
[2018-10-21] MEDS: DABIGATRAN 150 MG CAPSULE PO SCH (23:25)
[2018-10-21] MEDS: PANTOPROZOLE 40MG TABLET PO SCH (23:25)
[2018-10-21] MEDS: MIRTAZAPINE 15 MG TABLET PO SCH (23:25)
[2018-10-21] MEDS: CHOLECALCIFEROL 1,000 UNIT TABLET PO SCH (23:26)
[2018-10-21] MEDS: EZETIMIBE 10 MG TABLET PO SCH (23:26)
[2018-10-21] MEDS: FERROUS SULFATE 325 MG TABLET PO SCH (23:31)
[2018-10-21] MEDS: DOXYCYCLINE 100 MG in DEXTROSE 5% 250 ML IV SCH (23:32)
[2018-10-21 23:49] VITALS: BP 111/50
[2018-10-21] MEDS ORDERED: ALBUTEROL/IPRATROPIUM 2.5MG/0.5MG, 3 ML ONE (23:50)
[2018-10-22] MEDS ORDERED: ALBUTEROL/IPRATROPIUM 2.5MG/0.5MG, 3 ML NPPB PRN
[2018-10-22] MEDS ORDERED: ALBUTEROL/IPRATROPIUM 2.5MG/0.5MG, 3 ML NPPB SCH (03:00)
[2018-10-22 04:00] VITALS: BP 138/64
[2018-10-22] MEDS: ALBUTEROL/IPRATROPIUM 2.5MG/0.5MG, 3 ML NPPB SCH ×6 (04:18→22:21)
[2018-10-22] MEDS: PIPERACILLIN/TAZO/PMX 3.375GM 50 ML IV SCH ×3 (04:24→19:54)
[2018-10-22] MEDS: methylPREDNISolone SOD SUCC 125 MG/2 ML IVPush SCH ×2 (04:24→10:19)
[2018-10-22] MEDS ORDERED: MAALOX/HYOSCYAMINE/LIDOCAINE 45 ML BTL PO ONE (04:30)
[2018-10-22 05:00] LABS: BASOPHILS % (AUTO) 0 % (0-1); EOSINOPHILS % (AUTO) 0 % (1-7); LYMPHOCYTES # (AUTO) 0.43 x10^3/uL (1-3.4); LYMPHOCYTES % (AUTO) 11 % (22-44); MD NO; MEAN CORPUSCULAR HEMOGLOBIN 31.5 pg (27.0-34.8); MEAN CORPUSCULAR HGB CONC 33.3 g/dL (32.4-35.8); MEAN CORPUSCULAR VOLUME 94.4 fL (80-100); MEAN PLATELET VOLUME 9.3 fL (7.4-10.4); MONOCYTES # (AUTO) 0.05 x10^3/uL (0.2-0.8); MONOCYTES % (AUTO) 1 % (2-9); NEUTROPHILS # (AUTO) 3.64 x10^3/uL (1.8-6.8); NEUTROPHILS % (AUTO) 88 % (42-75); PLATELET COUNT 262 x10^3/uL (130-400); RED BLOOD COUNT 3.48 x10^6/uL (3.82-5.3); RED CELL DISTRIBUTION WIDTH 15.5 % (9.6-15.2)
[2018-10-22 05:09] LABS: ALANINE AMINOTRANSFERASE 20 U/L (12-78); ALBUMIN 2.3 g/dL (3.4-5.0); ANION GAP 6 mmol/L (5-15); CALCIUM 7.8 mg/dL (8.5-10.1); CHLORIDE 113 mmol/L (98-107); CHOLESTEROL, TOTAL 115 mg/dL (140-239); CREATININE 0.53 mg/dL (0.55-1.02); TRIGLYCERIDES 101 mg/dL (50-200); VLDL CHOLESTEROL 20 mg/dL (0-25)
[2018-10-22 05:11] LABS: ALKALINE PHOSPHATASE 68 U/L (45-117); BILIRUBIN,TOTAL 0.2 mg/dL (0.2-1.0); CHOL/HDL RATIO 2.9; HDL CHOL % 35 % (28-40); HDL CHOLESTEROL (DIRECT) 40 mg/dL (40-60); LDL CHOLESTEROL,CALCULATED 55 mg/dL (54-169); LDL/HDL RATIO 1.4 (0.5-3.0); TOTAL PROTEIN 5.8 g/dL (6.4-8.2)
[2018-10-22] MEDS: ASPIRIN 81 MG TABLET EC PO SCH (05:35)
[2018-10-22] MEDS: LEVOTHYROXINE 50 MCG TABLET PO SCH (05:36)
[2018-10-22] MEDS: BUDESONIDE 0.5 MG/2 ML INHA NPPB SCH ×2 (10:14→19:17)
[2018-10-22] MEDS: DABIGATRAN 150 MG CAPSULE PO SCH ×2 (10:20→21:45)
[2018-10-22] MEDS: AMLODIPINE 5 MG TABLET PO SCH (10:20)
[2018-10-22] MEDS: CHOLECALCIFEROL 1,000 UNIT TABLET PO SCH ×2 (10:20→21:44)
[2018-10-22] MEDS: FERROUS SULFATE 325 MG TABLET PO SCH ×2 (10:20→21:45)
[2018-10-22] MEDS: LISINOPRIL 10 MG TABLET PO SCH (10:21)
[2018-10-22] MEDS: AMIODARONE 200 MG TABLET PO SCH (10:21)
[2018-10-22] MEDS: LACTOBACILLUS CHEW TABLET PO SCH ×2 (10:21→21:44)
[2018-10-22] MEDS: DOXYCYCLINE 100 MG in DEXTROSE 5% 250 ML IV SCH (10:42)
[2018-10-22] MEDS: PANTOPROZOLE 40MG TABLET PO SCH ×2 (10:42→21:44)
[2018-10-22] MEDS: SODIUM CHLORIDE 0.9% 1,000 ML IV SCH (10:53)
[2018-10-22] MEDS ORDERED: ALUMINUM/MAG/SIMETHICONE 30 ML UDC ONE (12:50)
[2018-10-22] MEDS: ALUMINUM/MAG/SIMETHICONE 30 ML UDC PO PRN ×2 (12:51→22:30)
[2018-10-22] MEDS: methylPREDNISolone SOD SUCC 40 MG/ML IV SCH (17:45)
[2018-10-22] MEDS: ATORVASTATIN 40 MG TABLET PO SCH (21:44)
[2018-10-22] MEDS: EZETIMIBE 10 MG TABLET PO SCH (21:45)
[2018-10-22] MEDS: MIRTAZAPINE 15 MG TABLET PO SCH (21:45)
[2018-10-22 23:12] LABS: RAPID INFLUENZA A Negative (Negative); RAPID INFLUENZA B Negative (Negative)
[2018-10-23] MEDS: ALBUTEROL/IPRATROPIUM 2.5MG/0.5MG, 3 ML NPPB SCH ×5 (02:15→20:00)
[2018-10-23 04:00] VITALS: BP 125/55
[2018-10-23] MEDS: PIPERACILLIN/TAZO/PMX 3.375GM 50 ML IV SCH ×3 (04:10→20:02)
[2018-10-23] MEDS: methylPREDNISolone SOD SUCC 40 MG/ML IV SCH ×2 (04:12→16:38)
[2018-10-23 04:46] LABS: BASOPHILS # (AUTO) 0.01 x10^3/uL (0-0.1); BASOPHILS % (AUTO) 0 % (0-1); EOSINOPHILS # (AUTO) 0.26 x10^3/uL (0-0.4); EOSINOPHILS % (AUTO) 3 % (1-7); LYMPHOCYTES # (AUTO) 0.44 x10^3/uL (1-3.4); LYMPHOCYTES % (AUTO) 5 % (22-44); MD NO; MEAN CORPUSCULAR HEMOGLOBIN 31.2 pg (27.0-34.8); MEAN CORPUSCULAR HGB CONC 32.8 g/dL (32.4-35.8); MEAN PLATELET VOLUME 9.1 fL (7.4-10.4); MONOCYTES # (AUTO) 0.42 x10^3/uL (0.2-0.8); MONOCYTES % (AUTO) 5 % (2-9); NEUTROPHILS % (AUTO) 88 % (42-75); PLATELET COUNT 258 x10^3/uL (130-400); RED BLOOD COUNT 3.25 x10^6/uL (3.82-5.3); RED CELL DISTRIBUTION WIDTH 15.9 % (9.6-15.2)
[2018-10-23 04:58] LABS: CHLORIDE 118 mmol/L (98-107)
[2018-10-23 05:05] LABS: ALANINE AMINOTRANSFERASE 16 U/L (12-78); ALBUMIN 2.4 g/dL (3.4-5.0); ALKALINE PHOSPHATASE 58 U/L (45-117); ANION GAP 6 mmol/L (5-15); BILIRUBIN,TOTAL 0.3 mg/dL (0.2-1.0); CREATININE 0.43 mg/dL (0.55-1.02); TOTAL PROTEIN 5.6 g/dL (6.4-8.2)
[2018-10-23] MEDS: ASPIRIN 81 MG TABLET EC PO SCH (05:22)
[2018-10-23] MEDS: LEVOTHYROXINE 50 MCG TABLET PO SCH (05:25)
[2018-10-23] MEDS: DABIGATRAN 150 MG CAPSULE PO SCH ×2 (08:33→20:03)
[2018-10-23] MEDS: PANTOPROZOLE 40MG TABLET PO SCH ×2 (08:33→20:03)
[2018-10-23] MEDS: LISINOPRIL 10 MG TABLET PO SCH (08:33)
[2018-10-23] MEDS: FERROUS SULFATE 325 MG TABLET PO SCH ×2 (08:33→20:03)
[2018-10-23] MEDS: AMLODIPINE 5 MG TABLET PO SCH (08:33)
[2018-10-23] MEDS: AMIODARONE 200 MG TABLET PO SCH (08:33)
[2018-10-23] MEDS: LACTOBACILLUS CHEW TABLET PO SCH ×2 (08:33→20:03)
[2018-10-23] MEDS: CHOLECALCIFEROL 1,000 UNIT TABLET PO SCH ×2 (08:33→20:03)
[2018-10-23] MEDS: BUDESONIDE 0.5 MG/2 ML INHA NPPB SCH ×2 (09:00→21:00)
[2018-10-23] MEDS: OXYcodone IR 5MG TABLET PO PRN ×2 (11:15→16:40)
[2018-10-23] MEDS ORDERED: POTASSIUM PHOSPHATE 44 MEQ in SODIUM CHLORIDE 0.9% 500 ML IV ONE (13:00)
[2018-10-23 19:59] VITALS: BP 151/77
[2018-10-23] MEDS: ATORVASTATIN 40 MG TABLET PO SCH (20:03)
[2018-10-23] MEDS: EZETIMIBE 10 MG TABLET PO SCH (20:03)
[2018-10-23] MEDS: MIRTAZAPINE 15 MG TABLET PO SCH (20:04)
[2018-10-24 02:01] VITALS: BP 162/86
[2018-10-24] MEDS: ALBUTEROL/IPRATROPIUM 2.5MG/0.5MG, 3 ML NPPB SCH ×5 (04:00→14:18)
[2018-10-24] MEDS: methylPREDNISolone SOD SUCC 40 MG/ML IV SCH (04:28)
[2018-10-24] MEDS: PIPERACILLIN/TAZO/PMX 3.375GM 50 ML IV SCH ×2 (04:28→12:29)
[2018-10-24] MEDS: ASPIRIN 81 MG TABLET EC PO SCH (05:51)
[2018-10-24] MEDS: LEVOTHYROXINE 50 MCG TABLET PO SCH (05:52)
[2018-10-24 06:40] VITALS: BP 165/81
[2018-10-24] MEDS: OXYcodone IR 5MG TABLET PO PRN (06:42)
[2018-10-24] MEDS: AMIODARONE 200 MG TABLET PO SCH (08:44)
[2018-10-24] MEDS: LACTOBACILLUS CHEW TABLET PO SCH (08:47)
[2018-10-24] MEDS: AMLODIPINE 5 MG TABLET PO SCH (08:47)
[2018-10-24] MEDS: FERROUS SULFATE 325 MG TABLET PO SCH (08:47)
[2018-10-24] MEDS: CHOLECALCIFEROL 1,000 UNIT TABLET PO SCH (08:48)
[2018-10-24] MEDS: PANTOPROZOLE 40MG TABLET PO SCH (08:48)
[2018-10-24] MEDS: LISINOPRIL 10 MG TABLET PO SCH (08:48)
[2018-10-24] MEDS: DABIGATRAN 150 MG CAPSULE PO SCH (08:48)
[2018-10-24 08:49] VITALS: BP 155/82
[2018-10-24] MEDS: BUDESONIDE 0.5 MG/2 ML INHA NPPB SCH (09:00)
[2018-10-24] MEDS ORDERED: LORazepam 2 MG/ML, 1ML IVPush PRN (09:30)
[2018-10-24] MEDS ORDERED: MORPHINE SULFATE 4 MG/ML, 1ML IVPush PRN (09:30)
== END 2018-10-24 15:31 | disposition hospice, home (50) | DRG 189 ==
LOC: ED 19:39 → EDIP 21:11 → CCU 23:01 → 3NE 10-23 18:14
PROVIDERS: ADMIT Internal Medicine; ATTEND Internal Medicine
PROC: 5A09357 Assistance with Respiratory Ventilation, Less than 24 Consecutive Hours, Continuous Positive Airway Pressure (ICD-10-PCS; principal; 2018-10-21)
PROC: 5A09357 Assistance with Respiratory Ventilation, Less than 24 Consecutive Hours, Continuous Positive Airway Pressure (ICD-10-PCS; 2018-10-22)
PROC: 5A09357 Assistance with Respiratory Ventilation, Less than 24 Consecutive Hours, Continuous Positive Airway Pressure (ICD-10-PCS; 2018-10-23)
DX: J96.21 Acute and chronic respiratory failure with hypoxia (principal); J90 Pleural effusion, not elsewhere classified; J44.1 Chronic obstructive pulmonary disease with (acute) exacerbation; E46 Unspecified protein-calorie malnutrition; D68.59 Other primary thrombophilia; J44.0 Chronic obstructive pulmonary disease with (acute) lower respiratory infection; J98.11 Atelectasis; J96.22 Acute and chronic respiratory failure with hypercapnia; D63.8 Anemia in other chronic diseases classified elsewhere; E03.9 Hypothyroidism, unspecified; E78.00 Pure hypercholesterolemia, unspecified; E78.5 Hyperlipidemia, unspecified; F41.9 Anxiety disorder, unspecified; I11.9 Hypertensive heart disease without heart failure; I25.10 Atherosclerotic heart disease of native coronary artery without angina pectoris; I25.2 Old myocardial infarction; I48.2 Chronic atrial fibrillation; K21.9 Gastro-esophageal reflux disease without esophagitis; M81.0 Age-related osteoporosis without current pathological fracture; Y95 Nosocomial condition; Z51.5 Encounter for palliative care; Z82.49 Family history of ischemic heart disease and other diseases of the circulatory system; Z86.73 Personal history of transient ischemic attack (TIA), and cerebral infarction without residual deficits; Z87.19 Personal history of other diseases of the digestive system; Z87.891 Personal history of nicotine dependence; Z90.710 Acquired absence of both cervix and uterus; Z95.0 Presence of cardiac pacemaker; Z95.5 Presence of coronary angioplasty implant and graft; Z68.21 Body mass index [BMI] 21.0-21.9, adult
CPT/HCPCS: 36415; 36600; 71045; 71275; 80048; 80053; 80061; 82040; 82803; 83036; 83735; 83880; 84100; 84145; 84439; 84443; 84484; 85025; 85379; 87040; 87081; 87400; 93005; 94640; 94660; 96365; 96368; 99291; G0378; J0696; J2543; J3370; J3480; J7060; J7620; J7626; Q9967; J2060; J2920; J2930; J7030; J7040